=== PATIENT | female | born 1950 | race Caucasian/White ===

== ENCOUNTER 2018-12-31 21:11 | Inpatient (IN) | payer OTHER, MEDICAID ==
--- NOTE | 2018-12-31 21:21 | EDPHY ---
H & P Time Seen by Provider: 12/31/18 21:16 HPI/ROS: CHIEF COMPLAINT: [ ] HISTORY OF PRESENT ILLNESS: [Need 4: Location, Duration, Severity, Quality, Context, Timing Modifying Factors, Associated S&S] REVIEW OF SYSTEMS: A comprehensive 10 point review of systems is otherwise negative aside from elements mentioned in the history of present illness. Source: Patient Exam Limitations: No limitations - Medical/Surgical History Hx Asthma: No Hx Chronic Respiratory Disease: No Hx Diabetes: Yes Hx Cardiac Disease: No Hx Renal Disease: No Hx Cirrhosis: No Hx Alcoholism: No Hx HIV/AIDS: No Hx Splenectomy or Spleen Trauma: No Other PMH: pmh- DM, neuropathy, thyroid CA (16 yo), HTN. psh- thyroidectomy, sternocleidomastoidectomy, rhinoplasty, cataract x2, membrane from R eye removed. uses APAP at night (pt states not CPAP) - Social History Smoking Status: Never smoked Allergies/Adverse Reactions: tetracycline [Tetracycline] Allergy (Intermediate, Verified 02/04/16 12:49) Home Medications: Medication Instructions Recorded Levothyroxine [Synthroid 112 mcg 112 mcg PO DAILY06 10/03/14 (*)] Aspirin [Aspirin 81mg (*)] 81 mg PO HS 11/11/14 Insulin Detemir [Levemir] 32 unit SQ DAILY 11/11/14 amLODIPine BESYLATE [Norvasc 5 mg 5 mg PO DAILY #30 tab 12/14/15 (*)] Beclomethasone Qvar 80 [Qvar 80] 1 puffs IH BID PRN 05/19/16 Calcitriol [Calcitriol (*)] 0.25 mcg PO DAILY 05/19/16 Calcium Carbonate [Tums Ultra 1,177 mg PO TID 05/19/16 Strength] Gabapentin [Neurontin 300 MG (*)] 300 mg PO 0900,1600 05/19/16 Hydrochlorothiazide [HCTZ (*)] 25 mg PO DAILY 05/19/16 Insulin Lispro [Humalog] 0 unit SQ AC 05/19/16 Losartan Potassium [Cozaar 50 mg 50 mg PO DAILY 05/19/16 (*)] Pantoprazole Sodium [Protonix 40mg 40 mg PO BID 05/19/16 (*)] Simvastatin [Zocor] 20 mg PO HS 05/19/16 levOFLOXACIN [levAQUIN (*)] 750 mg PO DAILY #6 tab 05/19/16 Departure - Departure Referrals: Patient,NotPresent [Primary Care Provider] - As per Instructions
--- NOTE | 2018-12-31 21:47 | EDPHY ---
H & P Stated Complaint: cough, weakness, and dehydration Time Seen by Provider: 12/31/18 21:16 HPI/ROS: HPI CHIEF COMPLAINT: Cough, generalized weakness HISTORY OF PRESENT ILLNESS: 68-year-old female, history of hypertension, thyroid cancer, pneumonia, diabetes, presents emergency room with generalized weakness, stating that she feels very dehydrated, also complains of worsening cough, denies any chest pain, denies vomiting or diarrhea. Does have nausea. Past Medical History: Significant medical history for diabetes, hypertension, thyroid cancer, pneumonia Past Surgical History: No recent surgery however had a thyroidectomy Social History: Lives locally, denies drugs alcohol tobacco. Family History: Noncontributory ROS REVIEW OF SYSTEMS: 10 Systems were reviewed and negative with the exception of the elements mentioned in the history of present illness. Exam Constitutional elderly, nontoxic, triage nursing summary reviewed, vital signs reviewed, awake/alert. Vital signs stable Eyes normal conjunctivae and sclera, EOMI, PERRLA. HENT normal inspection, atraumatic, moist mucus membranes, no epistaxis, neck supple/ no meningismus, no raccoon eyes. Respiratory clear to auscultation bilaterally, normal breath sounds, no respiratory distress, no wheezing. Cardiovascular rate normal, regular rhythm, no murmur, no edema, distal pulses normal. Gastrointestinal soft, non-tender, no rebound, no guarding, normal bowel sounds, no distension, no pulsatile mass. Genitourinary no CVA tenderness. Musculoskeletal no midline vertebral tenderness, full range of motion, no calf swelling, no tenderness of extremities, no meningismus, good pulses, neurovascularly intact. Skin pink, warm, & dry, no rash, skin atraumatic. Neurologic awake, alert and oriented x 3, AAOx3, moves all 4 extremities equally, motor intact, sensory intact, CN II-XII intact, normal cerebellar, normal vision, normal speech. Psychiatric normal mood/affect. Heme/Lymph/Immune no lymphadenopathy. Differential Diagnosis: Includes but is not limited to in a particular order pneumonia, viral illness, URI, electrolyte disturbance, generalized weakness, sepsis, bacteremia Medical Decision Making: Plan for this patient IV establishment with IV fluid, chest x-ray, basic labs, EKG, troponin, re-evaluate. Re-evaluation: EKG interpretation by me on record in [employer] system. Impression time of EKG 6 sinus rhythm, rate of 101, the EKG is reading ST elevation consider inferior injury however I disagree with this reading. It looks very similar to her previous EKG 04/09/2016. I do not appreciate acute ST elevation on this current EKG. The patient has no chest pain. EKG is obtained for cough and shortness of breath. EKG interpretation by me on record in [employer] system. Impression time of EKG 2330, this is sinus tach 105, without any signs of acute ischemia no ST elevation. Pretty much unchanged from previous EKG. Troponin negative is 0.00 Chest x-ray shows no pneumonia Labs reviewed. Patient given a DuoNeb breathing treatment and a L fluid. Still complaining of cough. Still complains of generalized weakness. Plan for hospital admission for generalized weakness, cough, hypoxia. Respiratory viral panel sent and influenza. The patient has no pneumonia On chest x-ray. Troponin negative. Spoke with the hospitalist service Dr. Cabral agrees to admit. Source: Patient - Personal History Current Tetanus/Diphtheria Vaccine: Yes Tetanus Vaccine Date: < 10 years - Medical/Surgical History Hx Asthma: No Hx Chronic Respiratory Disease: No Hx Diabetes: Yes Hx Cardiac Disease: No Hx Renal Disease: No Hx Cirrhosis: No Hx Alcoholism: No Hx HIV/AIDS: No Hx Splenectomy or Spleen Trauma: No Other PMH: pmh- DM, neuropathy, thyroid CA (16 yo), HTN. psh- thyroidectomy, sternocleidomastoidectomy, rhinoplasty, cataract x2, membrane from R eye removed. uses APAP at night (pt states not CPAP) - Social History Smoking Status: Never smoked Constitutional: Initial Vital Signs Temperature (C) 36.9 C 12/31/18 21:14 Heart Rate 102 H 12/31/18 21:14 Respiratory Rate 20 12/31/18 21:14 Blood Pressure 178/88 H 12/31/18 21:14 O2 Sat (%) 94 12/31/18 21:14 O2 Delivery Mode Nasal Cannula O2 (L/minute) 2 Allergies/Adverse Reactions: tetracycline [Tetracycline] Allergy (Intermediate, Verified 01/01/19 08:51) Rash/Itch NSAIDS (Non-Steroidal Anti-Inflamma Allergy (Verified 01/01/19 08:51) Kidney Problems Home Medications: Medication Instructions Recorded Insulin Detemir [Levemir] 32 unit SQ DAILY 02/27/15 Beclomethasone Qvar 80 [Qvar 80] 1 puffs IH BID PRN 05/19/16 Calcitriol [Calcitriol (*)] 0.25 mcg PO DAILY 05/19/16 Calcium Carbonate [Tums Ultra 1,177 mg PO TID 05/19/16 Strength] Gabapentin [Neurontin 300 MG (*)] 300 - 600 mg PO HS 05/19/16 Hydrochlorothiazide [HCTZ (*)] 25 mg PO DAILY 05/19/16 Losartan Potassium [Cozaar 50 mg 50 mg PO HS 05/19/16 (*)] Acetaminophen [Tylenol ES 500 mg 500 mg PO Q6 PRN 01/01/19 (*)] Albuterol [Proventil Inhaler HFA 1 - 2 puffs IH Q4H PRN 01/01/19 (*)] Amoxicillin/Clavulanate Pot 875 mg PO BID 01/01/19 [Augmentin 875 MG TAB (*)] Benzonatate [Tessalon Pearles (RX)] 100 mg PO TID PRN 01/01/19 Guaifenesin/Codeine Phosphate 5 - 10 ml PO Q6HRS PRN 01/01/19 [Guaifenesin-Codeine Liquid] Hydrocodone/APAP 5/325 [[place] 1 each PO DAILY PRN 01/01/19 5/325 (*)] Insulin Aspart [novoLOG] 0 unit SC TIDMEAL 01/01/19 Levothyroxine [Synthroid 125 mcg 125 mcg PO DAILY06 01/01/19 (*)] Omeprazole 40 mg PO DAILY18 01/01/19 Pravastatin Sodium 40 mg PO HS 01/01/19 Medical Decision Making - Data Points Laboratory Results: Laboratory Results 12/31/18 21:15 12/31/18 21:15 Medications Given: Acetaminophen (Tylenol) 650 mg PO Q4HRS PRN PRN Reason: Pain, Mild/Fever, Can Take PO Stop: 06/30/19 00:30 Last Admin: 01/01/19 20:58 Dose: 650 mg Benzonatate (Tessalon Pearles) 200 mg PO TID PRN PRN Reason: Cough, Mild Stop: 06/30/19 12:20 Last Admin: 01/01/19 13:06 Dose: 200 mg Calcitriol (Calcitriol) 0.25 mcg PO DAILY LEONARDO Stop: 06/30/19 12:29 Last Admin: 01/01/19 14:44 Dose: 0.25 mcg Calcium Carbonate (Tums) 500 - 1,000 mg PO TID PRN PRN Reason: Indigestion Stop: 06/30/19 00:38 Last Admin: 01/01/19 07:52 Dose: 500 mg Calcium Carbonate (Tums) 1,000 mg PO TID LEONARDO Stop: 06/30/19 12:29 Last Admin: 01/01/19 21:22 Dose: Not Given Carboxymethylcellulose (Refresh Celluvisc) 1 drop EACHEYE Q6HRS PRN PRN Reason: Dry Irritated Eyes Stop: 06/30/19 12:25 Last Admin: 01/01/19 13:06 Dose: 1 drop Gabapentin (Neurontin) 300 mg PO HS [facility] Stop: 06/30/19 20:59 Last Admin: 01/01/19 20:59 Dose: 300 mg Guaifenesin (Mucinex) 1,200 mg PO BID LEONARDO Stop: 06/30/19 12:29 Last Admin: 01/01/19 20:59 Dose: 1,200 mg Sodium Chloride (Ns) 1,000 mls @ 75 mls/hr IV CONT LEONARDO Stop: 06/30/19 12:29 Last Admin: 01/01/19 13:07 Dose: 1,000 mls Insulin Glargine (Lantus Syringe) 32 units SC DAILY@0730 [facility] Stop: 06/30/19 07:29 Last Admin: 01/01/19 08:33 Dose: 32 units Insulin Human Lispro (Humalog Lispro) 0 unit SC TIDMEAL LEONARDO PRN Reason: Protocol Stop: 06/30/19 07:59 Last Admin: 01/01/19 17:40 Dose: Not Given Insulin Human Lispro (Humalog Lispro) 0 unit SC HS [facility] PRN Reason: Protocol Stop: 06/30/19 20:59 Last Admin: 01/01/19 21:00 Dose: Not Given Losartan Potassium (Cozaar) 50 mg PO HS [facility] Stop: 06/30/19 20:59 Last Admin: 01/01/19 21:05 Dose: 50 mg Ondansetron HCl (Zofran) 4 mg IVP Q4HRS PRN PRN Reason: Nausea/Vomiting, Can't Take PO Stop: 06/30/19 00:30 Last Admin: 01/01/19 19:57 Dose: 4 mg Ondansetron HCl (Zofran Odt) 4 mg PO Q4HRS PRN PRN Reason: Nausea/Vomiting, Use 1st Stop: 06/30/19 00:30 Last Admin: 01/01/19 17:39 Dose: 4 mg Pantoprazole Sodium (Protonix) 40 mg PO DAILY LEONARDO Stop: 06/30/19 08:59 Last Admin: 01/01/19 08:33 Dose: 40 mg Pantoprazole Sodium (Protonix) 40 mg PO DAILY@1800 LEONARDO Stop: 06/30/19 17:59 Last Admin: 01/01/19 17:40 Dose: 40 mg Pravastatin Sodium (Pravachol) 40 mg PO HS LEONARDO Stop: 06/30/19 20:59 Last Admin: 01/01/19 20:59 Dose: 40 mg Discontinued Medications Acetaminophen (Tylenol) 1,000 mg PO EDNOW ONE Stop: 12/31/18 23:32 Last Admin: 12/31/18 23:33 Dose: 1,000 mg Albuterol/Ipratropium (Duoneb) 3 ml IH EDNOW ONE Stop: 12/31/18 22:26 Last Admin: 12/31/18 22:33 Dose: 3 ml Furosemide (Lasix Injection) 20 mg IVP ONCE ONE Stop: 01/01/19 01:11 Last Admin: 01/01/19 01:54 Dose: 20 mg Sodium Chloride (Ns) 1,000 mls @ 0 mls/hr IV EDNOW ONE; Wide Open PRN Reason: Protocol Stop: 12/31/18 21:56 Last Admin: 12/31/18 22:17 Dose: 1,000 mls Magnesium Oxide (Magnesium Oxide) 400 mg PO BID LEONARDO Stop: 01/01/19 21:01 Last Admin: 01/01/19 20:59 Dose: 400 mg Promethazine HCl (Phenergan) 6.25 mg IVP ONCE ONE Stop: 12/31/18 22:33 Last Admin: 12/31/18 22:34 Dose: 6.25 mg Point of Care Test Results: Chemistry 12/31/18 22:46 POC Troponin I 0.00 ng/mL ng/mL (0.00-0.08) Departure - Departure Disposition: [facility] Inpatient Acute Clinical Impression: Generalized weakness Condition: Fair
[2018-12-31] MEDS ORDERED: NS 1,000 ML IV ONE (21:55)
[2018-12-31 22:01] LABS: PLATELET COUNT 237 10^3/uL (150-400)
[2018-12-31 22:16] LABS: INR 1.02 (0.83-1.16)
[2018-12-31] MEDS ORDERED: IPRATROPIUM/ALBUTEROL 3 ML DEYVIAL IH ONE (22:25)
[2018-12-31] MEDS ORDERED: ONDANSETRON 4 MG/2 ML VIAL ONE (22:31)
[2018-12-31] MEDS ORDERED: PROMETHAZINE HCL 25 MG/ML INJ IVP ONE (22:32)
[2018-12-31] MEDS ORDERED: ACETAMINOPHEN 500 MG TAB ONE (23:30)
[2018-12-31] MEDS ORDERED: ACETAMINOPHEN 500 MG TAB PO ONE (23:31)
[2019-01-01] MEDS ORDERED: ONDANSETRON DISINTEGRATING 4 MG TAB PO PRN (00:31)
[2019-01-01] MEDS ORDERED: PROMETHAZINE HCL 25 MG/ML INJ IVP PRN (00:31)
[2019-01-01] MEDS ORDERED: ONDANSETRON 4 MG/2 ML VIAL IVP PRN (00:31)
[2019-01-01] MEDS ORDERED: D50W 25 GM/50 ML SYR IVP PRN (00:35)
[2019-01-01] MEDS ORDERED: hydrALAZINE 10 MG TAB PO PRN (00:38)
[2019-01-01] MEDS ORDERED: NS 1,000 ML IV SCH (00:45)
[2019-01-01] MEDS ORDERED: FUROSEMIDE 20 MG/2 ML VIAL IVP ONE (01:10)
[2019-01-01 01:21] LABS: CREATINE KINASE 134 IU/L (0-156)
[2019-01-01 05:08] LABS: PLATELET COUNT 200 10^3/uL (150-400)
--- NOTE | 2019-01-01 07:46 | CPEKG ---
Test Reason : OPEN Blood Pressure : / mmHG Vent. Rate : 105 BPM Atrial Rate : 105 BPM P-R Int : 193 ms QRS Dur : 089 ms QT Int : 342 ms P-R-T Axes : 073 031 049 degrees QTc Int : 453 ms Sinus tachycardia Confirmed by Tru Wright ([id number]) on 01/01/2019 7:45:55 AM Referred By: Tru Wright Confirmed By:Tru Wright
--- NOTE | 2019-01-01 07:46 | CPEKG ---
Test Reason : OPEN Blood Pressure : / mmHG Vent. Rate : 101 BPM Atrial Rate : 101 BPM P-R Int : 182 ms QRS Dur : 085 ms QT Int : 346 ms P-R-T Axes : 073 047 060 degrees QTc Int : [address] elevation, consider inferior injury Confirmed by Tru Wright ([id number]) on 01/01/2019 7:45:56 AM Referred By: Tru Wright Confirmed By:Tru Wright
[2019-01-01] MEDS: CALCIUM CARBONATE 500 MG CHEWABLE TAB PO PRN (07:52)
[2019-01-01] MEDS: INSULIN LISPRO 100 UNIT/ML SC SCH ×4 (08:31→21:00)
[2019-01-01] MEDS: PANTOPRAZOLE SODIUM 40 MG TAB PO SCH ×2 (08:33→17:40)
[2019-01-01] MEDS: INSULIN GLARGINE 100 UNITS/ML UNIT SC SCH (08:33)
--- NOTE | 2019-01-01 08:35 | HOSPPROG ---
Hospitalist Progress Note Assessment/Plan: #Human metapneumovirus -supportive care #CKD 3: Cr at baseline #HTN: add Norvasc. Hold Losartan #DM: home insuliin #GERD: PPI #Deconditioning: PT #Hypomagnesium: replete DVT ppx: SQH Subjective: persistent cough Objective: Vital Signs Temp Pulse Resp BP Pulse Ox 36.9 C 101 H 18 128/59 H 93 01/01/19 03:46 01/01/19 03:46 01/01/19 03:46 01/01/19 03:46 01/01/19 03:46 Laboratory Results 01/01/19 04:47 01/01/19 04:47 12/31/18 01/01/19 01/02/19 05:59 05:59 05:59 Intake Total 1200 Balance 1200 PT 13.0 SEC (12.0-15.0) 12/31/18 21:15 INR 1.02 (0.83-1.16) 12/31/18 21:15 - Time Spent With Patient Time Spent with Patient: greater than 35 minutes Time Spent with Patient: Greater than 35 minutes spent on this patients care, greater than 50% of time spent counseling, educating, and coordinating care regarding the above mentioned plan. - Physical Exam Constitutional: no apparent distress Eyes: PERRL Ears, Nose, Mouth, Throat: moist mucous membranes Cardiovascular: regular rate and rhythym Respiratory: rhonchi Gastrointestinal: normoactive bowel sounds Genitourinary: no bladder fullness Skin: warm Musculoskeletal: full muscle strength Neurologic: AAOx3, CN II-XII Intact Psychiatric: interacting appropriately ICD10 Worksheet Patient Problems: Problems Problem Status Onset Generalized weakness Acute Hypertension Acute Hypoxemia Acute Pneumonia Acute
--- NOTE | 2019-01-01 09:41 | PDGENHP ---
History and Physical - Chief Complaint Cough - History of Present Illness Source-patient provides history appears reliable. EMR was reviewed and case discussed with ED provider. HPI-pleasant 60-year-old female with past medical history significant for HTN, hypothyroidism, HLD, GERD, dm 2, neuropathy, pneumonia 2016, thyroid cancer in remission who presents emergency department complaints of cough and shortness of breath the past week. Patient reports that she will feel this flushed at home only with coughing and nausea. She has also has associated headache and some lightheadedness. She did see her PCP in received nebulizer which seemed to help slightly. She has a nonproductive cough that will not ceased. Patient is a any central chest pain or palpitations. She denies any vomiting or diarrhea. She has no known sick contacts. Patient does endorse some late lower extremity swelling over the past 6 weeks that is quite significant despite compression hose. She also notes some dyspnea on exertion and possibly orthopnea without PND. Patient reports that shortly after her symptoms started she did go to [facility] for evaluation and underwent a V/Q scan which she reports was negative. Patient is complaining of worsening symptoms and generalized weakness and fatigue. History Information - Allergies/Home Medication List Allergies/Adverse Reactions: tetracycline [Tetracycline] Allergy (Intermediate, Verified 01/01/19 08:51) Rash/Itch NSAIDS (Non-Steroidal Anti-Inflamma Allergy (Verified 01/01/19 08:51) Kidney Problems Home Medications: Insulin Detemir [Levemir] 32 unit SQ DAILY 11/11/14 [Last Taken 12/31/18] Beclomethasone Qvar 80 [Qvar 80] 1 puffs IH BID PRN 05/19/16 [Last Taken ] Calcitriol [Calcitriol (*)] 0.25 mcg PO DAILY 05/19/16 [Last Taken 12/31/18] Calcium Carbonate [Tums Ultra Strength] 1,177 mg PO TID 05/19/16 [Last Taken 12:00] Gabapentin [Neurontin 300 MG (*)] 300 - 600 mg PO HS 05/19/16 [Last Taken ] Hydrochlorothiazide [HCTZ (*)] 25 mg PO DAILY 05/19/16 [Last Taken 12/31/18] Losartan Potassium [Cozaar 50 mg (*)] 50 mg PO DAILY 05/19/16 [Last Taken ] Acetaminophen [Tylenol ES 500 mg (*)] 500 mg PO Q6 PRN 01/01/19 [Last Taken Unknown] Albuterol [Proventil Inhaler HFA (*)] 1 - 2 puffs IH Q4H PRN 01/01/19 [Last Taken Unknown] Amoxicillin/Clavulanate Pot [Augmentin 875 MG TAB (*)] 875 mg PO BID 01/01/19 [ Last Taken Unknown] Benzonatate [Tessalon Pearles (RX)] 100 mg PO TID PRN 01/01/19 [Last Taken 12/31] Guaifenesin/Codeine Phosphate [Guaifenesin-Codeine Liquid] 5 - 10 ml PO Q6HRS PRN 01/01/19 [Last Taken 12/31/18] Hydrocodone/APAP 5/325 [Rescue 5/325 (*)] 1 each PO DAILY PRN 01/01/19 [Last Taken Unknown] Insulin Aspart [novoLOG] 0 unit SC TIDMEAL 01/01/19 [Last Taken 12/31/18 11:00 5 units] Levothyroxine [Synthroid 125 mcg (*)] 125 mcg PO DAILY06 01/01/19 [Last Taken ] Omeprazole 40 mg PO DAILY18 01/01/19 [Last Taken 12/31/18] Pravastatin Sodium 40 mg PO HS 01/01/19 [Last Taken 12/30/18] I have personally reviewed and updated: family history, medical history, social history, surgical history - Past Medical History Additional medical history: HTN, hypothyroidism, HLD, GERD, DM2, neuropathy, pneumonia 2015, thyroid cancer in remission - Surgical History Additional surgical history: Thyroidectomy, cataract extraction with lens placement, right eye surgery in addition, rhinoplasty, sternocleidomastoid ectomy - Family History Additional family history: Father-Dm 2, CAD. Brother-CAD - Social History Smoking Status: Never smoked Alcohol Use: None Drug Use: None Additional social history: Patient reports she lives alone. Review of Systems Review of Systems: ROS: 10pt was reviewed & negative except for what was stated in HPI & below Constitutional: Reports: chills, fever, malaise EENMT: Reports: nose congestion, sore throat. Denies: eye pain, throat swelling Cardiac: Reports: no symptoms, lightheadedness. Denies: palpitations Respiratory: Reports: cough, orthopnea, shortness of breath, wheezing Gastrointestinal: Reports: nausea. Denies: vomitting, abdominal pain, diarrhea Genitourinary: Reports: no symptoms Muscolosketal: Reports: no symptoms. Denies: muscle pain Skin: Reports: no symptoms Neurological: Reports: no symptoms Physical Exam Physical Exam: Selected Entries 12/31/18 21:14 Blood Pressure Automatic Method Heart Rate 102 H Respiratory 20 Rate O2 Sat (%) 94 Temperature (C) 36.9 C Blood Pressure 178/88 H Mean Arterial 118 H Pressure (MAP) O2 (L/minute) 2 O2 Delivery Nasal Cannula Mode Temperature Oral Source Temp Pulse Resp BP Pulse Ox 37.5 C 91 16 149/75 H 95 01/01/19 08:00 01/01/19 08:00 01/01/19 08:00 01/01/19 08:00 01/01/19 08:00 O2 (L/minute) 2 Constitutional: no apparent distress, not in pain, chronically ill appearing, obese, other (NAD. Pleasant adult female is lying quietly on the gurney. She does appear quite fatigued and acutely ill but nontoxic.) Eyes: PERRL, anicteric sclera, EOMI, No scleral injection Ears, Nose, Mouth, Throat: moist mucous membranes, hearing normal, other (No nasal discharge.), No poor dentition Cardiovascular: no murmur, rub, or gallop, JVD, pulses symmetric bilaterally, tachycardia, edema (Two to 3+ pitting edema bilateral lower extremities.) Peripheral Pulses: 1+: dorsalis-pedis (R) (Limited secondary to edema), dorsalis -pedis (L) (Limited 2/2 edema) Respiratory: reduced air movement (Diffusely decreased air movement in all lung soria.), No expiratory wheeze, No inspiratory crackles Gastrointestinal: normoactive bowel sounds, soft, non-tender abdomen, no palpable masses, other (Obese abdomen), No distension Genitourinary: no bladder tenderness, no renal bruits, No franks in urethra Skin: warm, normal color, no rashes or abrasions Musculoskeletal: generalized weakness, other (Patient is able to sit up independently.), No pain with ROM Neurologic: AAOx3, sensation intact bilaterally, weakness (Generalized), other ( Grossly nonfocal exam.), No facial droop Psychiatric: interacting appropriately, not encephalopathic, thought process linear, anxious, other (Pleasant and cooperative. Thought process, content, questions appropriate.) Lab Data & Imaging Review 01/01/19 04:47 01/01/19 04:47 WBC 12.39 10^3/uL (3.80-9.50) H 01/01/19 04:47 RBC 3.36 10^6/uL (4.18-5.33) L 01/01/19 04:47 Hgb 10.0 g/dL (12.6-16.3) L 01/01/19 04:47 Hct 30.8 % (38.0-47.0) L 01/01/19 04:47 MCV 91.7 fL (81.5-99.8) 01/01/19 04:47 MCH 29.8 pg (27.9-34.1) 01/01/19 04:47 MCHC 32.5 g/dL (32.4-36.7) 01/01/19 04:47 RDW 12.0 % (11.5-15.2) 01/01/19 04:47 Plt Count 200 10^3/uL (150-400) 01/01/19 04:47 MPV 10.3 fL (8.7-11.7) 01/01/19 04:47 Neut % (Auto) 85.7 % (39.3-74.2) H 01/01/19 04:47 Lymph % (Auto) 6.9 % (15.0-45.0) L 01/01/19 04:47 [place] % (Auto) 6.7 % (4.5-13.0) 01/01/19 04:47 Eos % (Auto) 0.0 % (0.6-7.6) L 01/01/19 04:47 Baso % (Auto) 0.1 % (0.3-1.7) L 01/01/19 04:47 Nucleat RBC Rel Count 0.0 % (0.0-0.2) 01/01/19 04:47 Absolute Neuts (auto) 10.62 10^3/uL (1.70-6.50) H 01/01/19 04:47 Absolute Lymphs (auto) 0.86 10^3/uL (1.00-3.00) L 01/01/19 04:47 Absolute Monos (auto) 0.83 10^3/uL (0.30-0.80) H 01/01/19 04:47 Absolute Eos (auto) 0.00 10^3/uL (0.03-0.40) L 01/01/19 04:47 Absolute Basos (auto) 0.01 10^3/uL (0.02-0.10) L 01/01/19 04:47 Absolute Nucleated RBC 0.00 10^3/uL (0-0.01) 01/01/19 04:47 Immature Gran % 0.6 % (0.0-1.1) 01/01/19 04:47 Immature Gran # 0.07 10^3/uL (0.00-0.10) 01/01/19 04:47 PT 13.0 SEC (12.0-15.0) 12/31/18 21:15 INR 1.02 (0.83-1.16) 12/31/18 21:15 APTT 28.4 SEC (23.0-38.0) 12/31/18 21:15 Sodium 135 mEq/L (135-145) 01/01/19 04:47 Potassium 4.1 mEq/L (3.5-5.2) 01/01/19 04:47 Chloride 99 mEq/L (97-110) 01/01/19 04:47 Carbon Dioxide 25 mEq/l (22-31) 01/01/19 04:47 Anion Gap 11 mEq/L (6-14) 01/01/19 04:47 BUN 24 mg/dL (7-23) H 01/01/19 04:47 Creatinine 1.5 mg/dL (0.6-1.0) H 01/01/19 04:47 Estimated GFR 35 01/01/19 04:47 Glucose 192 mg/dL (70-100) H 01/01/19 04:47 POC Glucose 167 mg/dL (70-100) H 01/01/19 07:49 Calcium 7.1 mg/dL (8.5-10.4) L 01/01/19 04:47 Magnesium 1.2 mg/dL (1.6-2.3) L 01/01/19 04:47 Total Bilirubin 0.4 mg/dL (0.1-1.4) 12/31/18 21:15 Conjugated Bilirubin 0.4 mg/dL (0.0-0.5) 12/31/18 21:15 Unconjugated Bilirubin 0.0 mg/dL (0.0-1.1) 12/31/18 21:15 AST 22 IU/L (14-46) 12/31/18 21:15 ALT 35 IU/L (9-52) 12/31/18 21:15 Alkaline Phosphatase 97 IU/L (38-126) 12/31/18 21:15 Creatine Kinase 134 IU/L (0-156) 12/31/18 21:15 POC Troponin I 0.00 ng/mL (0.00-0.08) 12/31/18 22:46 NT-Pro-B Natriuret Pep 84 pg/mL (0-125) 12/31/18 21:15 Total Protein 6.7 g/dL (6.3-8.2) 12/31/18 21:15 Albumin 3.9 g/dL (3.5-5.0) 12/31/18 21:15 TSH 1.380 uIU/mL (0.465-4.680) 01/01/19 04:47 Free T4 1.48 ng/dL (0.59-2.19) 01/01/19 04:47 Free T3 2.61 pg/mL (2.77-5.27) L 01/01/19 04:47 Imaging Review: Image reviewed, report pending at time of admission. Cardiomegaly. Prominent pulmonary vasculature otherwise clear. Visualized and Interpreted EKG results: Yes EKG additional interpertation: Sinus tachycardia in the 100s. QTC 453. There is no acute ST changes. Motion artifact is present. Assessment & Plan Assessment: pleasant 60-year-old female with past medical history significant for HTN, hypothyroidism, HLD, GERD, dm 2, neuropathy, pneumonia 2016, thyroid cancer in remission who presents emergency department complaints of cough and shortness of breath the past week. Cough - history suspicious for respiratory illness. Of viral PCR is pending at time of my interview. n the patient endorses some wheezing which is improved with a nebulizer treatment received in the emergency department. Will hold off on steroid supplementation although patient does have significantly decreased air movement she does have a history of diabetes so need to monitor blood sugars closely. Additionally patient with complaints of lower extremity edema some orthopnea she does have evidence of JVD. Her BNP was normal. The patient reporting significant decline in her stamina. Will obtain echocardiogram to evaluate for possibility of CHF. No murmurs appreciated on exam with lower suspicion for valvular heart disease. Will diurese as needed. Incentive spirometry. Continue albuterol p.r.n.. Generalized weakness (Acute) - secondary to patient's acute illness and generalized deconditioning. Plan to mobilize. Acute on chronic kidney disease likely stage III - patient baseline unclear. IV fluids received in the emergency department a whole L. There is potential concern for CHF given patient's complaints of severe edema orthopnea. Patient receiving low-dose Lasix and echocardiogram as noted above. Monitor patient's renal function closely. Hold off on nephrotoxin drugs. Renally dose medications. Dm 2 - plan to continue patient's home regimen of insulin long-acting 32 units daily and lispro will place on sliding scale. ADA diet Hypothyroidism - checking TFTs. Resume patient's home medication. Neuropathy-resume patient's gabapentin 1 med rec available at renal dosing. GERD-resume patient's Tums p.r.n. Anemia likely of chronic kidney disease. No evidence of active bleeding. FEN - status post 1 L bolus emergency department. Patient does appear volume overloaded at this time. Single dose Lasix will be ordered monitor her electrolytes replaced p.r.n.. ADA diet ordered PPX-SCDs if tolerated. Lovenox if patient should stay additional day. Cor status-full Disposition-patient admitted to observation status on the med surge floor for additional monitoring and treatment of her cough and evaluation for possible CHF.
[2019-01-01] MEDS: MAGNESIUM OXIDE 400 MG TAB PO SCH ×2 (11:44→20:59)
[2019-01-01] MEDS: ACETAMINOPHEN 325 MG TAB PO PRN ×2 (11:52→20:58)
[2019-01-01] MEDS ORDERED: BECLOMETHASONE QVAR IH PRN (12:21)
[2019-01-01] MEDS ORDERED: ALBUTEROL 60 PUFFS/8 GM MDI IH PRN (12:21)
[2019-01-01] MEDS ORDERED: HYDROCODONE/APAP 5/325 TAB PO PRN (12:21)
[2019-01-01] MEDS: BENZONATATE 100 MG CAP PO PRN (13:06)
[2019-01-01] MEDS: guaiFENesin 600 MG TAB.ER PO SCH ×2 (13:06→20:59)
[2019-01-01] MEDS: CARBOXYMETHYLCELLULOSE 1% 0.4 ML DROPERETTE EACHEYE PRN (13:06)
[2019-01-01] MEDS: CALCIUM CARBONATE 500 MG CHEWABLE TAB PO SCH ×3 (13:06→21:22)
[2019-01-01] MEDS: NS 1,000 ML IV SCH (13:07)
--- NOTE | 2019-01-01 14:43 | ASMTCMCOM ---
CM Note CM Note Notes: Pts case discussed w/ Dr. Fowler. Pt is a 68 y/o female admitted for generalized weakness and a cough. Pt lives alone. Pt was seen last week at [facility] after a PCP visit. Pt has o2 at home. PT has been ordered and awaiting recommendations. Needs are TBD at this time. CM to follow. Plan: TBD Date Signed: 01/01/2019 02:42 PM Electronically Signed By:JONATAN Desouza
[2019-01-01] MEDS: CALCITRIOL 0.25 MCG CAP PO SCH (14:44)
[2019-01-01] MEDS ORDERED: PROTOCOL MAGNESIUM 1 DOSE IV PRN (15:38)
[2019-01-01] MEDS ORDERED: LOSARTAN POTASSIUM 50 MG TAB PO SCH (15:39)
[2019-01-01] MEDS ORDERED: amLODIPine BESYLATE 5 MG TAB PO SCH (15:45)
--- NOTE | 2019-01-01 17:46 | ECHO ---
[email or web address] [address] [address] Main: [phone] Echocardiography Examination Transthoracic Name: OSCAR COON MR#: [id number] Study Date: 01/01/2019 Study Time: 08:04 AM Date of : 1950 Age: 68 year(s) Height: 165.1 cm (65 in.) Weight: 98.43 kg (217 lb.) BSA: 2.05 m2 Gender: Female Examination: Echo Contrast: Image Quality: Rhythm: Heart Rate: BP: 130 mmHg/60 mmHg Indication: Cardiac: dyspnea, edema Procedure Staff Referring Physician: Blending Tank Tender Helper: Kike Dennis RDCS Reading Physician: Zaire Muhammad MD Requesting Provider: Indication: Cardiac: dyspnea, edema Measurements Chambers AV/MV Label Value Normal Value Label Value Normal Value LVOT Vmax 0.84 m/s (0.7m/s - 1.1m/s) AV PGmax 12 mmHg LVOTd 1.9 cm (1.8cm - 2cm) AV PGmean 7 mmHg LVOT VTI 20.3 cm (18cm - 22cm) AV Vmax 1.72 m/s LVDd, 2D 4.6 cm (3.9cm - 5.3cm) NOAM (Vmax) 1.4 cm2 LVDs, 2D 2.8 cm (2.1cm - 4cm) NOAM (VTI) 1.6 cm2 IVSd, 2D 0.8 cm (0.6cm - 1.1cm) MV E Vmax 1.23 m/s LVPWd, 2D 0.9 cm MV A Vmax 1.73 m/s LVEF, 2D 70 % (54% - 74%) MV E/A 0.71 LVOT PGmean 2 mmHg MV E/E' lateral 19.4 LVOT Vmean 0.64 m/s MV E/E' septal 16 (0.45 - 1.25) RVDd, 2D 1.5 cm (1.9cm - 3.8cm) MV E' septal 0.08 m/s LA Volume, BP 48 ml (22ml - 52ml) MV VTI 44.4 cm LADs, 2D 3.3 cm (2.7cm - 3.8cm) MVA D (continuity eq.) 1.3 cm2 LAESV index, BP 23.4 ml/m2 MV PGmax 11 mmHg Additional Vessels MV PGmean 5 mmHg Label Value Normal Value MV E' lateral 0.06 m/s AoRoot, MM 3.1 cm (2.2cm - 3.7cm) MV E/E' mean 17.57 MV E' mean 0.07 m/s TV/PV Label Value Normal Value Patient: OSCAR COON Study Date: 01/01/2019 Page 1 of 2 08:04 AM PV PGmax 3 mmHg PV Vmax, Caliper 0.83 m/s (0.6m/s - 0.9m/s) Conclusions 1. The left ventricle is normal in size. The ejection fraction is estimated at 65-70%. There is grade 1 diastolic dysfunction. 2. The mitral valve is normal in structure. There is mitral annular calcification present. There is no significant mitral regurgitation. 3. The aortic valve was not well seen but appears trileaflet. There is no aortic stenosis. There is no aortic insufficiency. 4. The pulmonary artery pressure could not be adequately estimated. 5. No old studies for comparison. Findings Left Ventricle: Left ventricle is normal in size. Global hypercontractility of the left ventricle. EF range is estimated at 65 % - 70 %. Left ventricle wall thickness is normal. There are no regional wall motion abnormalities. Grade I Diastolic Dysfunction. Right Ventricle: Normal size right ventricle. The RV function appears grossly normal. Left Atrium: The left atrium is normal in size. Right Atrium: The right atrium is normal in size. Mitral Valve: Mitral valve appears structurally normal. No significant mitral regurgitation. There is mild mitral calcification. Aortic Valve: No aortic valve regurgitation. There is no aortic stenosis. Aortic leaflets exhibit mild calcification. The aortic valve is trileaflet. Tricuspid Valve: Tricuspid valve leaflets are normal in appearance and function. No significant tricuspid regurgitation. Pulmonic Valve: Pulmonic leaflets are structurally normal. No pulmonic valve regurgitation is evident. Aorta: The aorta is normal. The aortic root size in M-mode measures 3.1 cm. Aorta Measurements AoRoot, MM is 3.1 cm. Pericardium: No pericardial effusion. Exam Details Procedure Ordered: Echo (No Signature Object) Patient: OSCAR COON Study Date: 01/01/2019 Page 2 of 2 08:04 AM [id number]
[2019-01-01] MEDS: PRAVASTATIN SODIUM 40 MG TAB PO SCH (20:59)
[2019-01-01] MEDS ORDERED: GABAPENTIN 300 MG CAP PO SCH (21:00)
[2019-01-01] MEDS: LOSARTAN POTASSIUM 50 MG TAB PO SCH (21:05)
[2019-01-02] MEDS: BENZONATATE 100 MG CAP PO PRN ×4 (00:12→19:59)
[2019-01-02] MEDS: NS 1,000 ML IV SCH (02:54)
[2019-01-02] MEDS: LEVOTHYROXINE 125 MCG TAB PO SCH (05:44)
[2019-01-02] MEDS ORDERED: MAGNESIUM SULF 1 GM/DEXTROSE 100 ML IV ONE (07:24)
[2019-01-02] MEDS: ACETAMINOPHEN 325 MG TAB PO PRN (08:13)
[2019-01-02] MEDS: PANTOPRAZOLE SODIUM 40 MG TAB PO SCH ×2 (08:14→17:29)
[2019-01-02] MEDS: guaiFENesin 600 MG TAB.ER PO SCH ×2 (08:14→20:26)
[2019-01-02] MEDS: CALCITRIOL 0.25 MCG CAP PO SCH (08:14)
[2019-01-02] MEDS: CALCIUM CARBONATE 500 MG CHEWABLE TAB PO SCH ×3 (08:14→22:46)
[2019-01-02] MEDS: INSULIN LISPRO 100 UNIT/ML SC SCH ×4 (08:16→21:46)
[2019-01-02] MEDS: INSULIN GLARGINE 100 UNITS/ML UNIT SC SCH ×2 (08:16→08:17)
--- NOTE | 2019-01-02 08:34 | HOSPPROG ---
Hospitalist Progress Note Assessment/Plan: #Human metapneumovirus -supportive care #CKD 3: Cr at baseline, 1.4 #HTN: resume home meds #DM: home insulin #GERD: PPI #Deconditioning: PT #Hypomagnesium: replete #Deconditioning: still very weak; cont PT #DVT ppx: SQH #Disp: inpatient admission to cont PT; fall-risk which could lead to subsequent harm. DC tomorrow if improved Subjective: "weak with standing" Objective: Vital Signs Temp Pulse Resp BP Pulse Ox 36.9 C 83 18 156/86 H 94 01/02/19 07:36 01/02/19 07:36 01/02/19 07:36 01/02/19 07:36 01/02/19 07:36 Microbiology 01/01/19 02:00 Respiratory Panel (PCR) - Final Nasal, Sinus - Swab Human Metapneumovirus Detected Laboratory Results 01/01/19 04:47 01/02/19 04:28 01/01/19 01/02/19 01/03/19 05:59 05:59 05:59 Intake Total 1200 1000 Output Total 400 125 Balance 1200 600 -125 PT 13.0 SEC (12.0-15.0) 12/31/18 21:15 INR 1.02 (0.83-1.16) 12/31/18 21:15 - Time Spent With Patient Time Spent with Patient: greater than 35 minutes Time Spent with Patient: Greater than 35 minutes spent on this patients care, greater than 50% of time spent counseling, educating, and coordinating care regarding the above mentioned plan. - Physical Exam Constitutional: no apparent distress, other (appears brighter) Eyes: PERRL Ears, Nose, Mouth, Throat: moist mucous membranes Cardiovascular: regular rate and rhythym, No edema Respiratory: no respiratory distress, No inspiratory crackles Gastrointestinal: normoactive bowel sounds Genitourinary: no bladder fullness Skin: warm Musculoskeletal: full muscle strength Neurologic: AAOx3 Psychiatric: interacting appropriately ICD10 Worksheet Patient Problems: Problems Problem Status Onset Generalized weakness Acute Hypertension Acute Hypoxemia Acute Pneumonia Acute
[2019-01-02] MEDS ORDERED: LOSARTAN POTASSIUM 50 MG TAB PO SCH (09:00)
[2019-01-02] MEDS ORDERED: HYDROCHLOROTHIAZIDE 25 MG TAB PO SCH ×2 (16:11→16:25)
[2019-01-02] MEDS: HYDROCHLOROTHIAZIDE 25 MG TAB PO SCH (17:29)
[2019-01-02] MEDS: GABAPENTIN 300 MG CAP PO SCH (17:31)
[2019-01-02] MEDS: LOSARTAN POTASSIUM 50 MG TAB PO SCH (20:26)
[2019-01-02] MEDS: PRAVASTATIN SODIUM 40 MG TAB PO SCH (20:26)
[2019-01-03] MEDS: ALBUTEROL 3 ML DEYVIAL IH PRN ×2 (03:01→07:35)
[2019-01-03] MEDS: BENZONATATE 100 MG CAP PO PRN (04:16)
[2019-01-03] MEDS: LEVOTHYROXINE 125 MCG TAB PO SCH (05:51)
--- NOTE | 2019-01-03 06:55 | PDMN ---
Medical Necessity Medical necessity: Change to inpt as of 01/02/19 @ 16:17, meets inpt criteria per MD order and Systemic or Infectious Condition GRG, 68 y/o initially admitted as OBS w/weakness and cough due to human metapneumovirus, upgraded to inpt for persistent dyspnea w/exertion requiring 3L suppl O2, persistent weakness/fall risk/need for cont PT. PMHx includes DM 2, HTN, HLD, GERD, neuropathy, and thyroid ca in remission. Est LOS>2MN for ongoing management of above.
[2019-01-03] MEDS: INSULIN LISPRO 100 UNIT/ML SC SCH ×4 (07:48→21:16)
[2019-01-03] MEDS: INSULIN GLARGINE 100 UNITS/ML UNIT SC SCH ×2 (08:34→08:35)
[2019-01-03] MEDS: guaiFENesin 600 MG TAB.ER PO SCH ×2 (08:34→22:05)
[2019-01-03] MEDS: PANTOPRAZOLE SODIUM 40 MG TAB PO SCH ×2 (08:34→17:22)
[2019-01-03] MEDS: HYDROCHLOROTHIAZIDE 25 MG TAB PO SCH (08:34)
[2019-01-03] MEDS: CALCITRIOL 0.25 MCG CAP PO SCH (08:34)
[2019-01-03] MEDS: CALCIUM CARBONATE 500 MG CHEWABLE TAB PO SCH ×3 (08:34→21:17)
[2019-01-03] MEDS ORDERED: MAGNESIUM SULF 1 GM/DEXTROSE 100 ML IV ONE (08:38)
[2019-01-03] MEDS ORDERED: HYDROCHLOROTHIAZIDE 25 MG TAB PO SCH (09:00)
[2019-01-03] MEDS: ALBUTEROL 3 ML DEYVIAL IH SCH ×3 (10:45→22:15)
[2019-01-03] MEDS: predniSONE 20 MG TAB PO SCH (11:06)
--- NOTE | 2019-01-03 15:23 | HOSPPROG ---
Hospitalist Progress Note Assessment/Plan: #Human metapneumovirus -supportive care #Query underlying COPD: PFTs scheduled outpatient -add pred and schedule nebs today #CKD 3: Cr at baseline, 1.4 #HTN: resume home meds #DM: home insulin #GERD: PPI #Deconditioning: PT #Hypomagnesium: replete #Deconditioning: still very weak; cont PT #DVT ppx: SQH #Disp: inpatient admission to cont PT; fall-risk which could lead to subsequent harm. DC tomorrow if improved Subjective: increased WOB overnight Objective: Vital Signs Temp Pulse Resp BP Pulse Ox 36.8 C 110 H 18 135/67 H 90 L 01/03/19 11:02 01/03/19 11:02 01/03/19 11:02 01/03/19 11:02 01/03/19 11:02 01/02/19 01/03/19 01/04/19 05:59 05:59 05:59 Intake Total 1600 Output Total 300 Balance 1300 PT 13.0 SEC (12.0-15.0) 12/31/18 21:15 INR 1.02 (0.83-1.16) 12/31/18 21:15 - Time Spent With Patient Time Spent with Patient: greater than 35 minutes Time Spent with Patient: Greater than 35 minutes spent on this patients care, greater than 50% of time spent counseling, educating, and coordinating care regarding the above mentioned plan. - Physical Exam Constitutional: no apparent distress Eyes: PERRL Ears, Nose, Mouth, Throat: moist mucous membranes Cardiovascular: regular rate and rhythym Respiratory: other (diminshed througout), No inspiratory crackles Gastrointestinal: normoactive bowel sounds Genitourinary: no bladder fullness Skin: warm Musculoskeletal: full muscle strength Neurologic: AAOx3, CN II-XII Intact ICD10 Worksheet Patient Problems: Problems Problem Status Onset Generalized weakness Acute Hypertension Acute Hypoxemia Acute Pneumonia Acute
[2019-01-03] MEDS: GABAPENTIN 300 MG CAP PO SCH (17:22)
[2019-01-03] MEDS: LOSARTAN POTASSIUM 50 MG TAB PO SCH (21:15)
[2019-01-03] MEDS: PRAVASTATIN SODIUM 40 MG TAB PO SCH (21:15)
[2019-01-03] MEDS: guaiFENesin/CODEINE PHOS 10 ML UDCUP PO PRN (21:19)
[2019-01-03] MEDS: MELATONIN 3 MG TAB PO SCH (22:55)
[2019-01-04] MEDS: ALBUTEROL 3 ML DEYVIAL IH SCH ×3 (04:34→17:34)
[2019-01-04] MEDS: BENZONATATE 100 MG CAP PO PRN ×2 (04:43→13:26)
[2019-01-04] MEDS: LEVOTHYROXINE 125 MCG TAB PO SCH (04:44)
[2019-01-04] MEDS: guaiFENesin/CODEINE PHOS 10 ML UDCUP PO PRN ×2 (07:32→21:20)
[2019-01-04] MEDS: CARBOXYMETHYLCELLULOSE 1% 0.4 ML DROPERETTE EACHEYE PRN (07:33)
[2019-01-04] MEDS: guaiFENesin 600 MG TAB.ER PO SCH ×2 (08:13→21:17)
[2019-01-04] MEDS: PANTOPRAZOLE SODIUM 40 MG TAB PO SCH ×2 (08:13→17:49)
[2019-01-04] MEDS: INSULIN LISPRO 100 UNIT/ML SC SCH ×5 (08:14→21:41)
[2019-01-04] MEDS: HYDROCHLOROTHIAZIDE 25 MG TAB PO SCH (08:14)
[2019-01-04] MEDS: CALCITRIOL 0.25 MCG CAP PO SCH (08:14)
[2019-01-04] MEDS: predniSONE 20 MG TAB PO SCH ×2 (08:14→17:49)
[2019-01-04] MEDS: CALCIUM CARBONATE 500 MG CHEWABLE TAB PO SCH ×3 (08:14→21:20)
[2019-01-04] MEDS: INSULIN GLARGINE 100 UNITS/ML UNIT SC SCH (08:15)
[2019-01-04] MEDS ORDERED: BECLOMETHASONE QVAR 80 REDIHALER 120 INH/10.6 GM MDI IH PRN (08:30)
--- NOTE | 2019-01-04 11:18 | ASMTCMCOM ---
CM Note CM Note Notes: PT has cleared patient for home with no needs. CM available if d/c needs arise. Date Signed: 01/04/2019 11:07 AM Electronically Signed By:Giuliana Hummel LCSW
[2019-01-04] MEDS: CALCIUM CARBONATE 500 MG CHEWABLE TAB PO PRN (11:44)
--- NOTE | 2019-01-04 13:37 | HOSPPROG ---
Hospitalist Progress Note Assessment/Plan: #Human metapneumovirus -supportive care #Query underlying COPD: PFTs scheduled outpatient -increase pred, scheduled neb #CKD 3: Cr at baseline, 1.4 #HTN: resume home meds #DM: home insulin #GERD: PPI #Deconditioning: PT #Hypomagnesium: replete #Deconditioning: home with PT when clinically improved. Lives tatum #DVT ppx: SQH #Disp: inpatient admission to cont PT; fall-risk which could lead to subsequent harm. DC once clinically improved Subjective: coughing up soto sputum. Eating a little more today Objective: Vital Signs Temp Pulse Resp BP Pulse Ox 36.6 C 94 16 96/57 L 93 01/04/19 11:39 01/04/19 11:39 01/04/19 11:39 01/04/19 11:39 01/04/19 11:39 01/03/19 01/04/19 01/05/19 05:59 05:59 05:59 Intake Total 1600 Output Total 300 75 Balance 1300 -75 PT 13.0 SEC (12.0-15.0) 12/31/18 21:15 INR 1.02 (0.83-1.16) 12/31/18 21:15 - Time Spent With Patient Time Spent with Patient: greater than 35 minutes Time Spent with Patient: Greater than 35 minutes spent on this patients care, greater than 50% of time spent counseling, educating, and coordinating care regarding the above mentioned plan. - Physical Exam Constitutional: no apparent distress, obese Eyes: PERRL Ears, Nose, Mouth, Throat: moist mucous membranes Cardiovascular: regular rate and rhythym Respiratory: reduced air movement, other (still with poor air movement), No rhonchi Gastrointestinal: normoactive bowel sounds Genitourinary: no bladder fullness Musculoskeletal: full muscle strength ICD10 Worksheet Patient Problems: Problems Problem Status Onset Generalized weakness Acute Hypertension Acute Hypoxemia Acute Pneumonia Acute
[2019-01-04] MEDS: GABAPENTIN 300 MG CAP PO SCH (17:49)
[2019-01-04] MEDS: LOSARTAN POTASSIUM 50 MG TAB PO SCH (21:17)
[2019-01-04] MEDS: PRAVASTATIN SODIUM 40 MG TAB PO SCH (21:17)
[2019-01-04] MEDS: MELATONIN 3 MG TAB PO SCH ×2 (21:35→22:49)
[2019-01-05] MEDS: ALBUTEROL 3 ML DEYVIAL IH SCH ×3 (04:15→10:53)
[2019-01-05] MEDS: LEVOTHYROXINE 125 MCG TAB PO SCH (07:01)
[2019-01-05] MEDS: CALCIUM CARBONATE 500 MG CHEWABLE TAB PO SCH (08:08)
[2019-01-05] MEDS: guaiFENesin 600 MG TAB.ER PO SCH (08:09)
[2019-01-05] MEDS: CALCITRIOL 0.25 MCG CAP PO SCH (08:09)
[2019-01-05] MEDS: predniSONE 20 MG TAB PO SCH (08:09)
[2019-01-05] MEDS: INSULIN LISPRO 100 UNIT/ML SC SCH (08:09)
[2019-01-05] MEDS: PANTOPRAZOLE SODIUM 40 MG TAB PO SCH (08:10)
[2019-01-05] MEDS: HYDROCHLOROTHIAZIDE 25 MG TAB PO SCH (08:10)
[2019-01-05 08:12] VITALS: BP 168/81
[2019-01-05] MEDS: INSULIN GLARGINE 100 UNITS/ML UNIT SC SCH (08:17)
[2019-01-05] MEDS: ACETAMINOPHEN 325 MG TAB PO PRN (09:09)
--- NOTE | 2019-01-05 10:00 | PDHOMEO2F ---
Home Oxygen Face to Face Home Orders: I certify that a physician or a nurse practitioner or physician's pet care assistant has had a fgid-fl-yral encounter with this patient on the date of this order due to the diagnosis listed, which relates to the primary reason the patient requires home oxygen. Alternative treatments have been tried, or considered, and deemed ineffective. It is anticipated that supplemental oxygen will result in improvement with treatment. Home oxygen qualifying diagnosis: Acute on chronic hypoxic resp failure Home oxygen secondary diagnosis: Human metapneomovirus SpO2 on room air (%): 84 Frequency of home oxygen needed: continuous Home oxygen liters per minute: 3 Home oxygen delivery device: nasal cannula Concentrator: Yes E-tanks for mobility and back up: Yes If ordering portable O2, is the patient mobile in the home?: Yes I certify that, based on these findings, the home oxygen is medically necessary for this patient for the following length of time. Length of time home oxygen needed: 99 years
--- NOTE | 2019-01-05 13:07 | GDS ---
[f rep st] DISCHARGE SUMMARY DISCHARGE DIAGNOSES: 1. Acute on chronic hypoxic respiratory failure. 2. Human metapneumovirus. 3. Suspected chronic obstructive pulmonary disease exacerbation. Awaiting outpatient PFTs. 4. Chronic kidney disease. 5. Hypertension. 6. Diabetes. 7. Gastroesophageal reflux disease. 8. Deconditioning. 9. Hypomagnesemia. 10. Hypothyroidism. 11. Hyperlipidemia. HISTORY OF PRESENT ILLNESS: A pleasant 68-year-old female hypertension, hypothyroidism, hyperlipidem ia who presented to the ER with cough, shortness of breath for the past week. She saw her PCP and re ceived nebulizer and was prescribed Augmentin. She noted dyspnea with exertion. She went to [facility] for evaluation and underwent a V/Q scan, which was negative. HOSPITAL COURSE BY PROBLEM: 1. Acute hypoxemic respiratory failure, secondary to human metapneumovirus upper respiratory infecti on and likely COPD exacerbation. Symptoms improved with nebs and prednisone. 2. Suspect underlying COPD: She has PFTs as an outpatient schedule with [facility]. Continue prednison e, home inhalers. 3. CKD. Creatinine is at baseline. 4. Hypertension. Resume home medications. 5. Diabetes. She is advised to increase sliding scale with prednisone on board. 6. Gastroesophageal reflux disease. PPI. 7. Deconditioning. Cleared by PT. 8. Hypomagnesemia. This was repleted. DISPOSITION: Patient is stable for discharge home with oxygen. FOLLOWUP: 1. Her primary care physician this week. 2. PFTs. 3. Sleep study. PHYSICAL EXAMINATION: VITAL SIGNS: Today, temperature 37.0, blood pressure 166/99, heart rate in th e 80s, respirations 18, 93% on 3 L. GENERAL: Obese, in no acute distress, more color today. CV: R egular rate and rhythm. LUNGS: Increased air movement. No wheezes. ABDOMEN: Obese, soft, nontend er. MUSCULOSKELETAL: 5/5 upper and lower extremity strength. NEURO: 2 through 12 intact. PSYCH: Alert and oriented x3. Time spent on discharge greater 30 minutes at bedside counseling patient on medications, followup. /[id number]/MODL
== END 2019-01-05 12:25 | disposition home or self-care (01) | DRG 189 ==
LOC: EDUNIT# → F3E 01-01 01:15 → OBSVTOIN 01-02 16:17
PROVIDERS: ADMIT Family Medicine; ATTEND Family Medicine
DX: J96.21 Acute and chronic respiratory failure with hypoxia (principal); J44.1 Chronic obstructive pulmonary disease with (acute) exacerbation; J06.9 Acute upper respiratory infection, unspecified; B97.81 Human metapneumovirus as the cause of diseases classified elsewhere; E86.9 Volume depletion, unspecified; I12.9 Hypertensive chronic kidney disease with stage 1 through stage 4 chronic kidney disease, or unspecified chronic kidney disease; N18.9 Chronic kidney disease, unspecified; E11.9 Type 2 diabetes mellitus without complications; K21.9 Gastro-esophageal reflux disease without esophagitis; E89.0 Postprocedural hypothyroidism; E78.5 Hyperlipidemia, unspecified; E83.42 Hypomagnesemia; Z85.850 Personal history of malignant neoplasm of thyroid; Z79.4 Long term (current) use of insulin
CPT/HCPCS: 84481-90; 84484-ER; 96374; 97116-GP; 97161-GP; 97530-GP; G0378; J1815; J1940; J2405; J2550; J3475; J7512; J7613